=== PATIENT | female | born 1990 | race Caucasian/White ===

== ENCOUNTER 2017-03-14 08:19 | Emergency (ER) | payer OTHER ==
[~2017-03-14] VITALS: Ht 157.5 cm; Wt 63.5 kg
--- NOTE | ~2017-03-14 | CT16 ---
[facility] A Service of [facility] & [facility] RADIOLOGY TEXT RESULTS PATIENT: JERZY PULIDO LOCATION: [facility] : [birth year] UNIT #: [id number] AGE: [address]: Kamar Ladd MD SEX: F ORDER DR: [id number] [facility]. [place], [place] [address] [id number] E MR#: [id number] Acc #: [id number] NAME: JERZY PULIDO. : 1990 SEX: F STUDY DATE/TIME: 03/14/2017 11:58 UNIT: [facility] ROOM: STUDY DESCRIPTION: CT Angio Chest for PE Attending Physician: Kamar Ladd M.D. Ordering Physician: Nakia Villalba P.A.-C. Primary Care Physician: Primary Care Physician No MEDICAL IMAGING REPORT This report is preliminary unless electronic signature is present EXAM Chest CT PE protocol with contrast 03/14/2017 INDICATION 26-year-old female with tachycardia and chest pain for a week, seizure today, out of seizure medication. TECHNIQUE Contrast-enhanced CT scan of the chest PE protocol was performed with 3-D reformats. We have no comparisons. This CT exam was performed with one or more of the following radiation dose reduction techniques: automatic control, adjustment of mA and/or kV according to patient size, and iterative reconstruction. FINDINGS CT CHEST: IV bolus adequate. Aorta demonstrates no aneurysm or dissection. There is no evidence of acute pulmonary embolus in the central pulmonary arterial tree. Included thyroid unremarkable. Residual thymic tissue in the anterior mediastinum. No axillary adenopathy or mediastinal adenopathy with reactive appearing lymph nodes present in both areas. No pericardial effusion. Included upper abdomen demonstrates no acute finding. Lungs are clear. No effusion. No suspicious lung nodule. In the upper lobe on the right there is a 2-3 mm nodule not clearly calcified and very tiny. If the patient is at high risk for malignancy then interval followup CT should be performed in 1 year. If the patient is at low risk, no further follow up is necessary. There is no suspicious bone lesion. IMPRESSION 1. No aortic aneurysm or dissection STS. [facility] A Service of [facility] & [facility] RADIOLOGY TEXT RESULTS PATIENT: JERZY PULIDO LOCATION: [facility] #: [id number] : [birth year] UNIT #: [id number] AGE: [address]: Kamar Ladd MD SEX: F ORDER DR: 2. No PE 3. Lungs clear and upper abdomen negative 4. There is a tiny less than 4 mm noncalcified nodule in the upper lobe on the right. See follow up recommendations in the body of the report based upon risk factors for malignancy in this patient. Dictated by... Vernon South M.D. THIS IS AN ELECTRONICALLY VERIFIED REPORT Vernon South M.D. at 03/15/2017 3:03 PM BRANDYN/carri TD: 03/15/2017 09:29 JOB #: [id number] MEDICAL IMAGING REPORT Page 1 of 1 COPY
--- NOTE | ~2017-03-14 | CT52 ---
[facility] A Service of [facility] RADIOLOGY TEXT RESULTS PATIENT: JERZY PULIDO LOCATION: [facility] : [birth year] UNIT #: [id number] AGE: [address]: Kamar Ladd MD SEX: F ORDER DR: [id number] [facility]. [place], [place] [address] [id number] E MR#: [id number] Acc #: [id number] NAME: JERZY PULIDO. : 1990 SEX: F STUDY DATE/TIME: 03/14/2017 11:56 UNIT: [facility] ROOM: STUDY DESCRIPTION: CT Cervical Spine Wo Cont Attending Physician: Kamar Ladd M.D. Ordering Physician: Nakia Villalba P.A.-C. Primary Care Physician: Primary Care Physician No MEDICAL IMAGING REPORT This report is preliminary unless electronic signature is present EXAM CT C-spine no contrast INDICATION Chest pain and tachycardia for a week, neck tenderness today, syncopal episode today. Out of seizure medication. Neck pain and tenderness posteriorly. TECHNIQUE Noncontrast CT of the cervical spine was performed. Sagittal and coronal reformats performed. This CT exam was performed with one or more of the following radiation dose reduction techniques: automatic exposure control, adjustment of mA and/or kV according to patient size, and iterative reconstruction. COMPARISON No comparisons. FINDINGS CT C-SPINE: Dens and lateral masses intact. Alignment preserved. No acute fracture. Nonspecific reversal of the expected cervical curve in the mid to upper cervical levels. Mild degenerative change C1-2. No critical central canal stenosis. Included lung apices are clear. Soft tissues unremarkable. IMPRESSION Nonspecific reversal of the cervical curve in the upper cervical spine, otherwise negative CT of the C-spine. No acute fracture or malalignment. Dictated by... Vernon South M.D. [facility] A Service of [facility] RADIOLOGY TEXT RESULTS PATIENT: JERZY PULIDO LOCATION: [facility] : [birth year] UNIT #: [id number] AGE: [address]: Kamar Ladd MD SEX: F ORDER DR: THIS IS AN ELECTRONICALLY VERIFIED REPORT Vernon South M.D. at 03/15/2017 2:56 PM Kadie TD: 03/15/2017 09:26 JOB #: [id number] MEDICAL IMAGING REPORT Page 1 of 1 COPY
--- NOTE | ~2017-03-14 | CT71 ---
[facility] A Service of [facility] RADIOLOGY TEXT RESULTS PATIENT: JERZY PULIDO LOCATION: [facility] : [birth year] UNIT #: [id number] AGE: [address]: Kamar Ladd MD SEX: F ORDER DR: [id number] [facility]. [place], [place] [address] [id number] E MR#: [id number] Acc #: [id number] NAME: JERZY PULIDO. : 1990 SEX: F STUDY DATE/TIME: 03/14/2017 11:45 UNIT: [facility] ROOM: STUDY DESCRIPTION: CT Head Wo Contrast Attending Physician: Kamar Ladd M.D. Ordering Physician: Kamar Ladd M.D. Primary Care Physician: No Primary Care Physician MEDICAL IMAGING REPORT This report is preliminary unless electronic signature is present EXAM Head CT no contrast 03/14/2017 INDICATION Chest pain for 1 week, tachycardia, seizure today, out of medications for the past 3 days. Neck tenderness today. TECHNIQUE Noncontrast CT brain was performed and compared to 01/09/2014. This CT exam was performed with one or more of the following radiation dose reduction techniques: Automatic exposure control, adjustment of mA and/or kV according to patient size, and iterative reconstruction. FINDINGS Sulci and ventricles are unremarkable. No midline shift. No evidence of acute intracranial hemorrhage. There is no mass, mass effect, or edema to suggest acute infarct. No extraaxial fluid collections are present. Globes intact. Bones intact. Sinuses are clear. IMPRESSION 1. Negative noncontrast CT of the brain. Dictated by... Vernon South M.D. THIS IS AN ELECTRONICALLY VERIFIED REPORT Vernon South M.D. at 03/16/2017 1:52 PM Ravinder TD: 03/15/2017 09:08 JOB #: [id number] [facility] A Service of [facility] RADIOLOGY TEXT RESULTS PATIENT: JERZY PULIDO [facility]: [facility] #: [id number] : [birth year] UNIT #: [id number] AGE: [address]: Kamar Ladd MD SEX: F ORDER DR: MEDICAL IMAGING REPORT Page 1 of 1 COPY
--- NOTE | ~2017-03-14 | EKG ---
PATIENT: JERZY PULIDO UNIT #: [id number] Ventricular Rate: 118 BPM Atrial Rate: 118 BPM P-R Interval: 154 ms QRS Duration: 86 ms Q-T Interval: 322 ms QTC Calculation(Bezet): 451 ms P [place]: 87 degrees Calculated R [place]: 81 degrees Calculated T [place]: 51 degrees Diagnosis Line: Sinus tachycardia Diagnosis Line: Junctional ST depression, probably normal Diagnosis Line: Borderline ECG Diagnosis Line: No previous ECGs available Diagnosis Line: Confirmed by JJ NAJERA MD ([id number]) on Diagnosis Line: 03/14/2017 3:59:29 PM INTERPRETING MD: KAILASH
[~2017-03-14 08:19] MED LIST: NO MEDICATIONS; TYLENOL #3 PO
[2017-03-14 09:24] LABS: BASOPHIL# 0.1 X10e3 (0-0.3); BASOPHIL% 0.8 % (0-2.5); EOSINOPHIL# 0.2 X10e3 (0-0.7); EOSINOPHIL% 1.4 % (0.0-7.0); HEMATOCRIT 36.5 % (35.0-45.0); HEMOGLOBIN 12.4 gm/dL (12.0-16.0); LYMPHOCYTE# 2.8 X10e3 (1.0-3.5); MEAN CELL VOLUME 88.4 FL (83-96); MEAN CORPUSCULAR HEMOGLOBIN 29.9 PG (28-34); MEAN CORPUSCULAR HGB CONC 33.8 g/dL (30-36); MEAN PLATELET VOLUME 8.9 FL (6.5-11.5); MONOCYTE# 1.1 X10e3 (0-1.0); MONOCYTE% 9.9 % (3.0-12.0); NEUTROPHIL% 62.9 % (40-75); PLATELET COUNT 263 X10e3 (140-420); RED BLOOD COUNT 4.13 X10e (3.90-5.30); RED CELL DISTRIBUTION WIDTH 12.1 % (11.0-15.5); WHITE BLOOD COUNT 11.1 X10e3 (4.0-10.5)
[2017-03-14 09:40] LABS: DIFF IND NO
[2017-03-14 09:59] LABS: ALBUMIN SERUM 4.5 g/dL (3.5-5.0); ALCOHOL BLOOD <5 mg/dL ([, 0]); ALKALINE PHOSPHATASE 65 U/L (32-92); ALT (SGPT) 15 U/L (10-40); AST (SGOT) 26 U/L (10-42); BILIRUBIN, DIRECT 0.1 mg/dL (0.0-0.2); BILIRUBIN,INDIRECT 0.5 mg/dL (0.0-0.9); BILIRUBIN,TOTAL 0.6 mg/dL (0.2-2.0); BLOOD UREA NITROGEN 14 mg/dL (9-23); CALCIUM SERUM 9.1 mg/dL (8.4-10.2); CARBON DIOXIDE 26 mmol/L (22-31); CHLORIDE 104 mmol/L (100-111); CREATININE SERUM 0.7 mg/dL (0.6-1.4); GLOM FILT RATE Estimated 120.4 mL/min (>60); GLUCOSE FASTING 127 mg/dL (70-110); POTASSIUM 3.5 mmol/L (3.5-5.1); PROTEIN TOTAL SERUM 7.9 g/dL (6.0-8.3); SODIUM 138 mmol/L (135-145)
[2017-03-14 10:31] LABS: POC - CKMB <1.0 ng/mL (0.0-7.9); POC - TROPONIN <0.05 ng/mL (<=0.05)
[2017-03-14 12:53] LABS: URINE SOURCE CLEAN CATCH
[2017-03-14 13:05] LABS: URINE APPEARANCE CLEAR; URINE BILIRUBIN NEG (NEG); URINE BLOOD NEG (NEG); URINE COLOR YELLOW; URINE GLUCOSE NEG (NEG); URINE KETONE NEG (NEG); URINE LEUKOCYTE ESTERASE NEG (NEG); URINE NITRATE NEG (NEG); URINE PROTEIN NEG (NEG); URINE SPECIFIC GRAVITY 1.062 (1.003-1.035)
[2017-03-14 13:11] LABS: CULTURE INDICATED? NO
[2017-03-14 13:31] LABS: AMPHETAMINE POS (NEG); BARBITURATES NEG (NEG); BENZODIAZEPINES NEG (NEG); COCAINE NEG (NEG); MARIJUANA NEG (NEG); OPIATES POS (NEG); TRICYCLIC ANTIDEPRESSANTS NEG (NEG); U METHADONE NEG (NEG)
[2017-03-14 13:59] LABS: POC - CKMB 2.1 ng/mL (0.0-7.9); POC - TROPONIN <0.05 ng/mL (<=0.05)
== END 2017-03-14 14:50 | disposition left against medical advice (07) ==
LOC: CED 08:19
PROVIDERS: Emergency Medicine; Physician Assistant
DX: G40.909 Epilepsy, unspecified, not intractable, without status epilepticus (principal); F19.10 Other psychoactive substance abuse, uncomplicated; Z91.14 Patient's other noncompliance with medication regimen; Z88.0 Allergy status to penicillin; F17.210 Nicotine dependence, cigarettes, uncomplicated
CPT/HCPCS: 36415; 70450; 71275; 72125; 80048; 80076; 80307; 81003; 82553; 82947; 83605; 84484; 84703; 85025; 87040; 93005; 96361; 96374; 96376; 99285; G0480; J2060; Q9967